=== PATIENT | male | born 1940 | race Caucasian/White ===

== ENCOUNTER 2017-07-07 05:31 | Day surgery (SDC) | payer OTHER ==
[~2017-07-07] VITALS: Ht 188 cm; Wt 103.0 kg
--- NOTE | ~2017-07-07 | O ---
[facility] [place] [address] OPERATIVE REPORT Name: EDD COUGHLIN Room #: DEP [facility]#: [id number] Admission: 07/07/17 Attend Phys: Jack Betancourt MD Discharge: 07/07/17 Date of : 36 Report #: [id number] THIS REPORT FOR: //name// CC: Dr. Locke Yvette Betancourt SURGEON: Jack Betancourt MD PREOPERATIVE DIAGNOSIS: Bilateral nasal lacrimal duct obstruction. POSTOPERATIVE DIAGNOSIS: Bilateral nasal lacrimal duct obstruction. OPERATION PERFORMED: Bilateral endoscopic dacryoplasty with silicone intubation. ANESTHESIA: General. COMPLICATIONS: None. INDICATIONS FOR SURGERY: This patient has acquired bilateral nasal lacrimal duct stenosis with chronic tearing and discharge, both eyes. The current procedures are undertaken in order to improve the patient's level of lacrimal outflow and visual clarity. Informed consent was obtained to include but not limited to the potential risks for damage to the eye, loss of vision, bleeding, infection, failure to improve the problem and need for further surgery. DESCRIPTION OF OPERATION: The patient was taken to the operating room, where general anesthesia was administered. The medial canthi were anesthetized with 2% Xylocaine with epinephrine mixed with equal parts of 0.75% Marcaine with Wydase. The lateral viera of the nose were then bilaterally injected with the same anesthetic mixture. The nose was packed with Afrin-soaked cottonoids. The patient was then prepped and draped in the usual sterile fashion. A moist compress was placed on the left eye while attention was turned to the right side. The superior and inferior puncta were then atraumatically dilated with a punctum dilator. A size 0 lacrimal probe was then passed through the superior canalicular system and through the stenosed nasal lacrimal duct. The nasal packing was removed and the endoscope was brought into the field. The inferior turbinate was gently infractured with a [place] periosteal elevator to allow visualization of the inferior meatus in the area of the opening of the valve of Hasner in the nose. The probe was found and confirmed to be in the proper location. It was removed and subsequently replaced with a size 1 and a size 2 Escobedo probe, which also had their passage confirmed endoscopically to be in the [facility] [address] [place] [address] OPERATIVE REPORT Name: EDD COUGHLIN Room #: DEP [facility].#: [id number] Admission: 07/07/17 Attend Phys: Jack Betancourt MD Discharge: 07/07/17 Date of : 36 Report #: [id number] proper location. A 3 by 15 LacriCatheter was lubricated with a small quantity of ophthalmic antibiotic ointment. The LacriCatheter was then passed through the superior canalicular system and the stenosed nasal lacrimal duct. The LacriCatheter was confirmed to be in the proper location endoscopically intranasally in the inferior meatus. The LacriCatheter was inflated to 9 atmospheres for 90 seconds and deflated. The catheter was then inflated to 9 atmospheres for 60 seconds. The catheter was then withdrawn to the proximal black ring. It was then inflated to 9 atmospheres for 90 seconds. The balloon was then deflated and reinflated to 9 atmospheres for 60 seconds. The balloon was the aspirated and withdrawn to the distal black ring. It was then inflated to 9 atmospheres for 90 seconds. The balloon was deflated and reinflated to 9 atmospheres for 60 seconds. The balloon was then deflated and vigorously aspirated as it was withdrawn through the superior canalicular system. A Winston tube was then passed through the superior canalicular system and out the dilated duct. The Winston tube was secured under the inferior turbinate in the inferior meatus with a Winston hook and retrieved endoscopically. The Winston tube was then passed through the inferior canalicular system in a similar fashion and was retrieved endoscopically in the nose atraumatically. The Winston tube was then secured to itself with 3 square throws and then to the lateral wall of the nose with a 5-0 Prolene suture. Attention was then turned to the other side, where the same procedure was performed. Antibiotic steroid drops were then placed in both eyes. A small quantity of ophthalmic antibiotic ointment was placed on the Winston tube. The patient was then transported to the recovery area with no anesthetic or operative complications being noted. <ELECTRONICALLY SIGNED> By: Jack Betancourt MD 07/11/17 0620 [id number] [id number] Jack Betancourt MD /nt
[~2017-07-07 05:31] MED LIST: CALCIUM OYSTER500 MG PO; COUMADIN7.5 MG PO; DECADRON PO; DITROPAN XL5 M1 PO; GLIPIZIDE XL2.5 MG PO; GLUCOPHAGE XR500 MG PO; LISINOPRIL2.5 MG PO; LOPRESSOR25 PO; NEPHROCAPS SOFT1 CAP PO; PRAVACHOL20 MG PO; TRICOR145 MG PO; VITAMIN D-32000 UNIT PO
[2017-07-07 12:36] LABS: INR 1.1; PROTIME 11.4 Seconds (9.3-11.4)
[2017-07-07 14:27] VITALS: BP 153/89
== END 2017-07-07 15:26 | disposition home or self-care (01) ==
LOC: OR 05:31 → TBA 05:31 → OR 09:33
PROVIDERS: Ophthalmology
DX: H04.553 Acquired stenosis of bilateral nasolacrimal duct (principal); Z87.891 Personal history of nicotine dependence; I10 Essential (primary) hypertension; Z95.0 Presence of cardiac pacemaker; I48.91 Unspecified atrial fibrillation; E78.5 Hyperlipidemia, unspecified; I49.5 Sick sinus syndrome; Z98.890 Other specified postprocedural states; E11.9 Type 2 diabetes mellitus without complications
CPT/HCPCS: 50010; 50101; 50261; 50386; 50398; 51777; 56528; 62110; 62900; 70005